=== PATIENT | male | born 1960 | race Caucasian/White ===

== ENCOUNTER 2016-12-15 21:53 | Inpatient (IN) | payer OTHER ==
[~2016-12-15] VITALS: Ht 172.7 cm; Wt 76.4 kg
[~2016-12-15 21:53] MED LIST: ASPI81TA82 PO; LASI80TA PO; LIPI20TA PO; PRED10 PO
[2016-12-15 21:59] VITALS: BP 153/94; PULSE 71; RESP 18; TEMP 98.2; O2SAT 99
[2016-12-15 22:08] VITALS: BP 153/94; PULSE 83; RESP 16; TEMP 98.2; O2SAT 99
[2016-12-15] MEDS ORDERED: IBUP800T23 PO (22:10)
[2016-12-15] MEDS ORDERED: ASPI81CH CHEW (22:10)
[2016-12-15] MEDS ORDERED: MORPHINE SULFATE 4 MG/ML INJ IV PUSH ONE (22:15)
[2016-12-15] MEDS ORDERED: SODIUM CHLORIDE 0.9% FLUSH 10 ML FLUSH IVF PRN (22:15)
[2016-12-15] MEDS ORDERED: ONDANSETRON HCL 4 MG/2 ML VIAL IVP ONE (22:15)
--- NOTE | 2016-12-15 22:16 | PD ---
HPI Chief Complaint: Injury Time Seen by Provider: 22:01 Travel History International Travel<30 days: No Contact w/Intl Traveler<30days: No Traveled to known affect area: No History of Present Illness HPI 55-year-old male arrives by EMS. He was walking down a hill, on a wet surface, and slipped backwards landing on his buttocks. He denies knee trauma however felt pain and swelling about the knee immediately after the fall. EMS notes deformity on scene. The knee was immobilized with a cardboard splint. He denies numbness tingling. No other injury to report. Immobilization helped pain. Mechanism mechanical. 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) Blood Disorders: Yes (Hemochromatosis) Cancer: No Cardiovascular Problems: No Diabetes: No Diminished Hearing: No Genitourinary: Yes (ADMISSION 07/29/12 [facility]) Immune Disorder: No Neurologic: No Psychiatric: No Reproductive: No Respiratory: No Thyroid Disease: No Past Surgical History AICD: No Arteriovenous Shunt: No Insulin Pump: No Joint Replacement: Yes (PINS AND SCREWS IN RIGHT SMALL FINGER) Pacemaker: No Social History Alcohol Use: Yes (several times per week) Tobacco Use: No Substance Use: No Allergies-Medications (Allergen,Severity, Reaction): Coded Allergies: No Known Allergies (Unverified , 07/29/12) Reported Meds & Prescriptions Reported Meds & Active Scripts Active Calcium 600+D 200 (Calcium Carbonate-Vitamin D) 600-200 Mg-Unit Tab 1 Tab PO BID Ergocalciferol 50,000 Unit Cap 50,000 Units PO Q7D Xarelto (Rivaroxaban) 10 Mg Tab 10 Mg PO DAILY Hydrocodone-Acetaminophen 10-325 mg Tab 1 Tab PO Q4H PRN Reported Ibuprofen 800 Mg Tab 800 Mg PO TID Aspirin 81 Mg Chew 81 Mg CHEW DAILY Review of Systems Except as stated in HPI: all other systems reviewed are Neg General / Constitutional: No: Fever Physical Exam Narrative GENERAL: 55-year-old male well-nourished well-developed SKIN: Warm and dry. HEAD: Atraumatic. Normocephalic. EYES: Pupils equal and round. No scleral icterus. No injection or drainage. ENT: No nasal bleeding or discharge. Mucous membranes pink and moist. NECK: Trachea midline. No JVD. CARDIOVASCULAR: Regular rate and rhythm. RESPIRATORY: No accessory muscle use. Clear to auscultation. Breath sounds equal bilaterally. GASTROINTESTINAL: Abdomen soft, non-tender, nondistended. Hepatic and splenic margins not palpable. MUSCULOSKELETAL: Generalized swelling about the superior aspect of the right knee with what feels like a separation of the patella. 2+ dorsalis pedis bilaterally. Ankle and toe flexion extension normal bilaterally. NEUROLOGICAL: Awake and alert. No obvious cranial nerve deficits. Motor grossly within normal limits. Five out of 5 muscle strength in the arms and legs. Normal speech. PSYCHIATRIC: Appropriate mood and affect; insight and judgment normal. Data Data Last Documented VS Vital Signs Date Time Temp Pulse Resp B/P (MAP) Pulse Ox O2 Delivery O2 Flow Rate FiO2 12/15/16 22:08 98.2 83 16 153/94 (113) 99 Room Air VS reviewed Orders Orders Femur (Ap & Lat/2vws) (12/15/16 22:01) Tibia/Fibula (Ap/Lat) (12/15/16 22:01) Complete Blood Count With Diff (12/15/16 22:01) Iv Access Insert/Monitor (12/15/16 22:01) Oximetry (12/15/16 22:01) Ecg Monitoring (12/15/16 22:01) Morphine Inj (Morphine Inj) (12/15/16 22:15) Ondansetron Inj (Zofran Inj) (12/15/16 22:15) Sodium Chloride 0.9% Flush (Ns Flush) (12/15/16 22:15) Basic Metabolic Panel (Bmp) (12/15/16 22:01) ^ Knee Immobilizer (12/15/16 22:01) Knee, Ltd (1 Or 2vws) (12/15/16 22:01) Admit To Inpatient (12/16/16 ) Vital Signs (Adult) Q4H (12/16/16 00:01) Activity Bed Rest (12/16/16 00:01) Diet Npo (12/16/16 Breakfast) Sodium Chlor 0.9% 1000 Ml Inj (Ns 1000 M (12/16/16 00:01) Sodium Chloride 0.9% Flush (Ns Flush) (12/16/16 00:15) Sodium Chloride 0.9% Flush (Ns Flush) (12/16/16 09:00) Ondansetron Inj (Zofran Inj) (12/16/16 00:15) Comprehensive Metabolic Panel (12/17/16 06:00) Complete Blood Count With Diff (12/17/16 06:00) Acetaminophen (Tylenol) (12/16/16 00:15) Acetamin-Hydrocod 325-5 Mg (Parma 5-325 (12/16/16 00:15) Hydromorphone Pf Inj (Dilaudid Pf Inj) (12/16/16 00:15) Docusate Sodium-Senna (Cherise-Colace) (12/16/16 09:00) Magnesium Hydroxide Liq (Milk Of Magnesi (12/16/16 00:15) Sennosides (Senokot) (12/16/16 00:15) Bisacodyl Supp (Dulcolax Supp) (12/16/16 00:15) Lactulose Liq (Lactulose Liq) (12/16/16 00:15) Inpatient Certification (12/16/16 ) Admit Order (Ed Use Only) (12/16/16 00:41) Consult Orthopedic (12/16/16 ) Labs Laboratory Tests Test 12/15/16 22:20 White Blood Count 5.5 TH/MM3 Red Blood Count 3.72 MIL/MM3 Hemoglobin 12.6 GM/DL Hematocrit 36.5 % Mean Corpuscular Volume 98.3 FL Mean Corpuscular Hemoglobin 34.0 PG Mean Corpuscular Hemoglobin Concent 34.6 % Red Cell Distribution Width 13.2 % Platelet Count 114 TH/MM3 Mean Platelet Volume 7.8 FL Neutrophils (%) (Auto) 60.7 % Lymphocytes (%) (Auto) 22.4 % Monocytes (%) (Auto) 15.0 % Eosinophils (%) (Auto) 1.3 % Basophils (%) (Auto) 0.6 % Neutrophils # (Auto) 3.3 TH/MM3 Lymphocytes # (Auto) 1.2 TH/MM3 Monocytes # (Auto) 0.8 TH/MM3 Eosinophils # (Auto) 0.1 TH/MM3 Basophils # (Auto) 0.0 TH/MM3 CBC Comment DIFF FINAL Differential Comment Blood Urea Nitrogen 7 MG/DL Creatinine 0.79 MG/DL Random Glucose 90 MG/DL Calcium Level 8.5 MG/DL Sodium Level 131 MEQ/L Potassium Level 3.8 MEQ/L Chloride Level 98 MEQ/L Carbon Dioxide Level 25.6 MEQ/L Anion Gap 7 MEQ/L Estimat Glomerular Filtration Rate 101 ML/MIN [facility] Medical Decision Making Medical Screen Exam Complete: Yes Emergency Medical Condition: Yes Medical Record Reviewed: Yes Differential Diagnosis Femur fracture, tibia fracture, patella fracture, internal derangement of knee Narrative Course The patient has a patella fracture. Case discussed with orthopedics. Knee Immobilizer. Nothing by mouth past midnight. Operative repair in the morning. Case discussed with Dr. Sher for [facility]. CBC & BMP Diagram 12/15/16 22:20 Calcium Level 8.5 Last 24 hours Impressions Knee X-Ray 12/16/16 0000 Signed Impressions: Service Date/Time: Friday, December 16, 2016 09:31 - CONCLUSION: Anatomic alignment. Manan Dale MD FACR Tibia/Fibula X-Ray 12/15/162200 Signed Impressions: Service Date/Time: Thursday, December 15, 2016 22:31 - CONCLUSION: 1. Displaced midpole patellar fracture as above. Paramjit Omer MD Knee X-Ray 12/15/162200 Signed Impressions: Service Date/Time: Thursday, December 15, 2016 22:29 - CONCLUSION: 1. Displaced midpole patella fracture. Paramjit Omer MD Femur X-Ray 12/15/162200 Signed Impressions: Service Date/Time: Thursday, December 15, 2016 22:27 - CONCLUSION: Mid patellar fracture with significant displacement of the fragments. Nicholas Bauman MD Diagnosis Primary Impression: Patellar fracture Qualified Codes: S82.091A - Other fracture of right patella, initial encounter for closed fracture Scripts Calcium Carbonate-Vitamin D (Calcium 600+D 200) 600-200 Mg-Unit Tab 1 TAB PO BID for Nutritional Supplement, #90 TAB 0 Refills Prov: Jae Garcia Jr. 12/16/16 Ergocalciferol (Ergocalciferol) 50,000 Unit Cap 70715 UNITS PO Q7D for Nutritional Supplement, #8 CAP Prov: Jae Garcia Jr. 12/16/16 Rivaroxaban (Xarelto) 10 Mg Tab 10 MG PO DAILY for Blood Clot Prevention, #21 TAB 0 Refills Prov: Jae Garcia Jr. 12/16/16 Hydrocodone-Acetaminophen (Hydrocodone-Acetaminophen) 10-325 mg Tab 1 TAB PO Q4H Y for PAIN, #60 TAB 0 Refills Prov: Jae Garcia Jr. 12/16/16 Kenton Banks MD Dec 15, 2016 22:16
[2016-12-15 22:59] LABS: AUTOMATED NEUTROPHIL # 3.3 TH/MM3 (1.8-7.7); BASOPHIL % 0.6 % (0.0-2.0); EOSINOPHIL # 0.1 TH/MM3 (0-0.4); EOSINOPHIL % 1.3 % (0.0-4.0); HEMATOCRIT 36.5 % (39.0-51.0); HEMO FLAGS DIFF FINAL; LYMPH % 22.4 % (9.0-44.0); LYMPHOCYTE # 1.2 TH/MM3 (1.0-4.8); MEAN CELL VOLUME 98.3 FL (80.0-100.0); MEAN CORPUSCULAR HGB CONC 34.6 % (32.0-36.0); NEUT % 60.7 % (16.0-70.0); PLATELET COUNT 114 TH/MM3 (150-450); RED BLOOD COUNT 3.72 MIL/MM3 (4.50-5.90); RED CELL DISTRIBUTION WIDTH 13.2 % (11.6-17.2); WHITE BLOOD COUNT 5.5 TH/MM3 (4.0-11.0)
--- NOTE | 2016-12-15 23:01 | RADRPT ---
EXAM DATE/TIME: 12/15/2016 22:31 [facility] COMPARISON: No previous studies available for comparison. INDICATIONS : Pain from fall. MEDICAL HISTORY : None. SURGICAL HISTORY : None. ENCOUNTER: Initial ACUITY: 1 day PAIN SCORE: 3/10 LOCATION: Right knee. FINDINGS: Two view examination of the right tibia demonstrates displaced patellar fracture with fracture fragme nts about 4.7 cm. Overlying soft tissue swelling and joint effusion. No fracture of the tib ia and fibula. CONCLUSION: 1. Displaced midpole patellar fracture as above. Paramjit Omer MD on December 15, 2016 at 22:56 Board Certified Radiologist. This report was verified electronically.
--- NOTE | 2016-12-15 23:05 | RADRPT ---
EXAM DATE/TIME: 12/15/2016 22:29 [facility] COMPARISON: No previous studies available for comparison. INDICATIONS : Pain from fall. MEDICAL HISTORY : None. SURGICAL HISTORY : None. ENCOUNTER: Initial ACUITY: 1 day PAIN SCORE: 3/10 LOCATION: Right knee. FINDINGS: There is a fracture midpole patella with displaced fracture fragments almost 5 cm. Overlying soft tis beth swelling and joint effusion. No other fracture identified. CONCLUSION: 1. Displaced midpole patella fracture. Paramjit Omer MD on December 15, 2016 at 23:02 Board Certified Radiologist. This report was verified electronically.
[2016-12-15 23:17] LABS: BICARBONATE 25.6 MEQ/L (21.0-32.0); POTASSIUM 3.8 MEQ/L (3.5-5.1)
--- NOTE | 2016-12-15 23:49 | RADRPT ---
EXAM DATE/TIME: 12/15/2016 22:27 [facility] COMPARISON: No previous studies available for comparison. INDICATIONS : Pain from fall. MEDICAL HISTORY : None. SURGICAL HISTORY : None. ENCOUNTER: Initial ACUITY: 1 day PAIN SCORE: 3/10 LOCATION: Right femur. FINDINGS: Two view examination of the right femur demonstrates a fracture of the midportion of the patella. The fractures are by 3.8 cm. There is a knee joint effusion. There is soft tissue swelling katelyn und the patellar region. No other possible fractures are seen. The right hip and knee joints are alig louisa. CONCLUSION: Mid patellar fracture with significant displacement of the fragments. Nicholas Bauman MD on December 15, 2016 at 23:44 Board Certified Radiologist. This report was verified electronically.
[2016-12-16] VITALS (7 sets, daily range): BP systolic 113–139; BP diastolic 67–79; PULSE 68–82; RESP 16–18; TEMP 97–98.4; O2SAT 96–100
[2016-12-16] MEDS ORDERED: BISACODYL 10 MG SUPP RECTAL PRN (00:15)
[2016-12-16] MEDS ORDERED: ACETAMINOPHEN/HYDROcodone 325 MG/5 MG TAB PO PRN (00:15)
[2016-12-16] MEDS ORDERED: ACETAMINOPHEN 325 MG TAB PO PRN (00:15)
[2016-12-16] MEDS ORDERED: SODIUM CHLORIDE 0.9% FLUSH 10 ML FLUSH IV FLUSH PRN (00:15)
[2016-12-16] MEDS ORDERED: LACTULOSE SYRUP 20 GM/30 ML CUP PO PRN (00:15)
[2016-12-16] MEDS ORDERED: HYDROmorphone HCL PF 1 MG/ML VIAL IV PRN (00:15)
[2016-12-16] MEDS ORDERED: ONDANSETRON HCL 4 MG/2 ML VIAL IVP PRN (00:15)
[2016-12-16] MEDS ORDERED: SENNOSIDES 8.6 MG TAB PO PRN (00:15)
[2016-12-16] MEDS ORDERED: MAGNESIUM HYDROXIDE SUSP 30 ML CUP PO PRN (00:15)
--- NOTE | 2016-12-16 01:04 | HHI.HP ---
[facility] Roopa Vaz MD Admission Diagnosis R Patella Fx; Fall Diagnoses: (1) Fall Diagnosis: Principal (2) Patellar fracture Diagnosis: Principal (3) Thrombocytopenia Diagnosis: Principal (4) HTN (hypertension) Diagnosis: Principal Travel History International Travel<30 Days: No Contact w/Intl Traveler <30 Da: No Traveled to Known Affected Are: No History of Present Illness This is a 55-year-old male with a PMH of Hemochromatosis was brought to the ER by EMS secondary to complaints of right knee pain after a fall. Pt had mechanical fall while walking down a hill, states he fell backwards and landed on his backside, however reports immediate right knee pain following fall. No LOC or head trauma reported. On arrival, BP 153/94, HR 71, O2 sat 99% on RA, Afebrile. Platelets 114, previously 280 on 08/01/12. Hemoglobin 12.6. Chemistry essentially unremarkable. Femur X-ray with midpatellar fracture with significant displacement of fragments. Knee X-ray with displaced mid pole patella fracture. Ortho consulted by ER physician, plan is for surgical intervention in am. Review of Systems Except as stated in HPI: all other systems reviewed are Neg ROS: 14 point review of systems otherwise negative. Past Family Social History Past Medical History PMH: Hemochromatosis Past Surgical History PAST SURGICAL HISTORY: Right Finger Surgery Allergies: Coded Allergies: No Known Allergies (Unverified , 07/29/12) Family History PAST FAMILY HISTORY: Reviewed. No h/o DM or CAD Social History PAST SOCIAL HISTORY: Occasional alcohol. He for tobacco or drugs. Physical Exam Vital Signs Vital Signs Date Time Temp Pulse Resp B/P (MAP) Pulse Ox O2 Delivery O2 Flow Rate FiO2 12/15/16 22:08 98.2 83 16 153/94 (113) 99 Room Air 12/15/16 21:59 98.2 71 18 153/94 (113) 99 Physical Exam PE: GENERAL: Middle-aged white male in no acute distress. HEENT: PERRLA, EOMI. No scleral icterus or conjunctival pallor. No lid lag or facial droop. CARDIOVASCULAR: Regular rate and rhythm. No obvious murmurs to auscultation. No chest tenderness to palpation. RESPIRATORY: No obvious rhonchi or wheezing. Clear to auscultation. Breath sounds equal bilaterally. GASTROINTESTINAL: Abdomen soft, non-tender, nondistended. BS normal. MUSCULOSKELETAL: Extremities without clubbing, cyanosis, or edema. No obvious deformities. Decreased ROM of RLE due to knee injury. NEUROLOGICAL: Awake, alert and oriented x4. No focal neurologic deficits. Moving both upper and lower extremities spontaneously. Laboratory Laboratory Tests Test 12/15/16 22:20 White Blood Count 5.5 Red Blood Count 3.72 Hemoglobin 12.6 Hematocrit 36.5 Mean Corpuscular Volume 98.3 Mean Corpuscular Hemoglobin 34.0 Mean Corpuscular Hemoglobin Concent 34.6 Red Cell Distribution Width 13.2 Platelet Count 114 Mean Platelet Volume 7.8 Neutrophils (%) (Auto) 60.7 Lymphocytes (%) (Auto) 22.4 Monocytes (%) (Auto) 15.0 Eosinophils (%) (Auto) 1.3 Basophils (%) (Auto) 0.6 Neutrophils # (Auto) 3.3 Lymphocytes # (Auto) 1.2 Monocytes # (Auto) 0.8 Eosinophils # (Auto) 0.1 Basophils # (Auto) 0.0 CBC Comment DIFF FINAL Differential Comment Blood Urea Nitrogen 7 Creatinine 0.79 Random Glucose 90 Calcium Level 8.5 Sodium Level 131 Potassium Level 3.8 Chloride Level 98 Carbon Dioxide Level 25.6 Anion Gap 7 Estimat Glomerular Filtration Rate 101 Result Diagram: 12/15/16221912/15/162219 Caprini VTE Risk Assessment Caprini VTE Risk Assessment: Mod/High Risk (score >= 2) Caprini Risk Assessment Model Point Value = 1 Point Value = 2 Point Value = 3 Point Value = 5 Age 41-60 Minor surgery BMI > 25 kg/m2 Swollen legs Varicose veins or History of unexplained or recurrent spontaneous Oral contraceptives or hormone replacement Sepsis (< 1 month) Serious lung disease, including pneumonia (< 1 month) Abnormal pulmonary function Acute myocardial infarction Congestive heart failure (< 1 month) History of inflammatory bowel disease Medical patient at bed rest Age 61-74 Arthroscopic surgery Major open surgery (> 45 min) Laparoscopic surgery (> 45 min) Malignancy Confined to bed (> 72 hours) Immobilizing plaster cast Central venous access Age >= 75 History of VTE Family history of VTE Factor V Leiden Prothrombin [id number] Lupus anticoagulant Anticardiolipin antibodies Elevated serum homocysteine Heparin-induced thrombocytopenia Other congenital or acquired thrombophilia Stroke (< 1 month) Elective arthroplasty Hip, pelvis, or leg fracture Acute spinal cord injury (< 1 month) Prophylaxis Regimen Total Risk Factor Score Risk Level Prophylaxis Regimen 0-1 Low Early ambulation 2 Moderate Order ONE of the following: *Sequential Compression Device (SCD) *Heparin 5000 units SQ BID 3-4 Higher Order ONE of the following medications: *Heparin 5000 units SQ TID *Enoxaparin/Lovenox 40 mg SQ daily (WT < 150 kg, CrCl > 30 mL/min) *Enoxaparin/Lovenox 30 mg SQ daily (WT < 150 kg, CrCl > 10-29 mL/min) *Enoxaparin/Lovenox 30 mg SQ BID (WT < 150 kg, CrCl > 30 mL/min) AND/OR *Sequential Compression Device (SCD) 5 or more Highest Order ONE of the following medications: *Heparin 5000 units SQ TID (Preferred with Epidurals) *Enoxaparin/Lovenox 40 mg SQ daily (WT < 150 kg, CrCl > 30 mL/min) *Enoxaparin/Lovenox 30 mg SQ daily (WT < 150 kg, CrCl > 10-29 mL/min) *Enoxaparin/Lovenox 30 mg SQ BID (WT < 150 kg, CrCl > 30 mL/min) AND *Sequential Compression Device (SCD) Assessment and Plan Problem List: (1) Fall ICD Code: W19.XXXA - Unspecified fall, initial encounter (2) Patellar fracture ICD Code: S82.009A - Unspecified fracture of unspecified patella, initial encounter for closed fracture (3) Thrombocytopenia ICD Code: D69.6 - Thrombocytopenia, unspecified (4) HTN (hypertension) ICD Code: I10 - Essential (primary) hypertension Assessment and Plan A/P: 1. Fall: s/p mechanical slip and fall on wet surface, no head trauma or LOC. 2. Right Patellar Fx: secondary to above. Knee X-ray with displaced mid pole patella fracture. Femur X-ray with midpatellar fracture with significant displacement of the fragments, images reviewed by me. Ortho consulted by ER physician, plan is for surgical intervention in am. NPO, IVF, analgesics/ antiemetics as needed. 3. Thrombocytopenia: Acute. Platelets 114, previously 280 on 08/01/12, no active bleeding. Will monitor, repeat labs in am. 4. HTN: BP 150's, likely compounded by pain complaints. No h/o HTN. Will monitor, prn meds if needed. 5. DVT Prophylaxis: Anticoagulation post op per Ortho 6. Social work for d/c planning as needed. 7. Case discussed w/ ER physician at length. Physician Certification 2 Midnight Certification Type: Admission for Inpatient Services Order for Inpatient Services The services are ordered in accordance with Medicare regulations or non- Medicare payer requirements, as applicable. In the case of services not specified as inpatient-only, they are appropriately provided as inpatient services in accordance with the 2-midnight benchmark. Estimated LOS (days): 2 days is the estimated time the patient will need to remain in the hospital, assuming treatment plan goals are met and no additional complications. Post-Hospital Plan: Not yet determined Juani Sher MD Dec 16, 2016 01:04
[2016-12-16] MEDS: SODIUM CHLOR 0.9% 1000 ML INJ 1,000 ML IV SCH ×4 (01:33→23:40)
--- NOTE | 2016-12-16 07:02 | PD.ORT.PN ---
Subjective Subjective Remarks s/p fall. right knee pain. no other complaints. Objective Vitals Vital Signs Date Time Temp Pulse Resp B/P (MAP) Pulse Ox O2 Delivery O2 Flow Rate FiO2 12/16/16 02:00 97.0 68 16 122/77 (92) 99 12/16/16 01:26 68 18 113/67 (82) 97 Room Air 12/15/16 22:08 98.2 83 16 153/94 (113) 99 Room Air 12/15/16 21:59 98.2 71 18 153/94 (113) 99 I/O 12/15/16 12/15/16 12/15/16 12/16/16 12/16/16 12/16/16 07:00 15:00 23:00 07:00 15:00 23:00 Intake Total 375 ml Output Total 1200 ml Balance -825 ml Intake Oral 0 ml IV Total 375 ml Output Urine Total 1200 ml # Voids 3 Result Diagram: 12/15/16221912/15/162219 Imaging Last 24 hours Impressions Tibia/Fibula X-Ray 12/15/162200 Signed Impressions: Service Date/Time: Thursday, December 15, 2016 22:31 - CONCLUSION: 1. Displaced midpole patellar fracture as above. Paramjit Omer MD Knee X-Ray 12/15/162200 Signed Impressions: Service Date/Time: Thursday, December 15, 2016 22:29 - CONCLUSION: 1. Displaced midpole patella fracture. Paramjit Omer MD Femur X-Ray 12/15/162200 Signed Impressions: Service Date/Time: Thursday, December 15, 2016 22:27 - CONCLUSION: Mid patellar fracture with significant displacement of the fragments. Nicholas Bauman MD Objective Remarks RLE: +swelling of knee. palpable deformity. full sensation distally and NVI Assessment & Plan Assessment and Plan 1) Right Patella Fx -sign consents -surgery today Konstantin Bojorquez Dec 16, 2016 07:02
[2016-12-16] MEDS ORDERED: GENTAMICIN SULFATE 80 MG/2 ML VIAL ONE (07:39)
[2016-12-16] MEDS ORDERED: VANCOMYCIN HCL 1000 MG VIAL ONE (07:39)
[2016-12-16] MEDS ORDERED: SODIUM CHLOR 0.9% 250 ML INJ 250 ML ONE (07:39)
[2016-12-16] MEDS ORDERED: SODIUM CHLORID 0.9% 500 ML IV PRN (09:00)
[2016-12-16] MEDS ORDERED: SODIUM CHLORIDE 0.9% FLUSH 10 ML FLUSH IV FLUSH SCH (09:00)
[2016-12-16] MEDS ORDERED: LACTATED RINGER'S 1000 ML IV PRN (09:00)
[2016-12-16] MEDS ORDERED: CHLORHEXIDINE GLUCONATE 2 % 1 PACK (2 CLOTHS) TOPICAL PRN (09:00)
[2016-12-16] MEDS ORDERED: METOPROLOL TARTRATE 25 MG TAB PO PRN (09:00)
[2016-12-16] MEDS: DOCUSATE SODIUM 50 MG/SENNA 8.6 MG TAB PO SCH ×2 (09:00→20:49)
[2016-12-16] MEDS ORDERED: INSULIN HUMAN REGULAR 1,000 UNITS/10 ML VIAL SQ PRN (09:00)
[2016-12-16] MEDS ORDERED: POVIDONE IODINE 5% (ANTISEPSIS KIT) 4 APPLICATIONS EACH NARE PRN (09:00)
[2016-12-16] MEDS ORDERED: ceFAZolin INJ 1,000 MG VIAL ONE (09:22)
--- NOTE | 2016-12-16 10:26 | PD.OP ---
cc: Suhas Vasquez MD Operative Report Date of Surgery: Dec 16, 2016 Preoperative Diagnosis: Comminuted right patella fracture Postoperative Diagnosis: Procedure: Open reduction internal fixation right patella Anesthesia: Gen. Surgeon: Suhas Vasquez Head Of History(s): RENETTA Olivarez PA-C The surgical procedure was assisted by my physician assistant softball coach. My P.A. presence was necessary throughout this case for the manipulation and positioning of the surgical extremity. My P.A. was assisting me throughout the duration of this procedure. The skill set of a physician assistant softball coach was medically necessary to complete this procedure. During the surgical case the life science technician was working at the back table and the physician assistant softball coach was directly assisting me. Operation and Findings: Plan of activity : Partial weightbearing up to 50 pounds with knee immobilizer, knee immobilizer on at all times, start passive range of motion 0-45 in 2 weeks This patient had an injury resulting in displaced patella fracture. Informed consent was confirmed preoperatively and informed consent was obtained. I had a detailed discussion with the patient regarding the risks and benefits of surgery. Patient was brought to the operating room and placed on the OR table. IV sedation and GETA were administered by anesthesiologist and IV antibiotics were given prior to incision. A timeout procedure was performed. The operative leg was prepped with alcohol followed by Hibiclens and draped in the usual sterile fashion. The procedure began with a 4-inch incision over the anterior knee. Subcutaneous tissue was dissected with Bovie. At this point the fracture site was visualized. Fracture was now cleaned with curettes. At this point attention was turned to reduction. There was significant comminution of the mid portion of the patella. Fracture fragments were manipulated to achieve reduction. K wires were used to hold provisional fixation. The inferior pole of the patella was reduced to the superior pole of the patella. Fracture keyed into anatomic alignment. Multiplanar fluoroscopy confirmed excellent alignment of fracture. 4 guide pins for the Synthes 4.0 cannulated screws were now placed from inferior to superior. Fluoroscopy was used to confirm appropriate guidepin placement. Screw lengths were measured. Cannulated drill was now placed over the guide pins. 4 Appropriate length screws were now placed, good compression was applied. 18 gauge wire was now passed through the cannulated screws in a [id number] fashion. 2 tension band type construct was now created. The wires were tensioned appropriately. Fluoroscopy confirmed well- placed hardware with well-aligned fracture. #5 FiberWire suture were now placed in figure of 8 fashion around the patella for additional stability. The retinaculum was now closed with #1 Vicryl, subcutaneous tissue was closed with 3 -0 Vicryl and skin was closed with shaun. Sterile dressings were applied. The patient was transferred to recovery in stable condition. He was placed into a knee immobilizer. Needle and sponge counts were correct. Suhas Vasquez MD Dec 16, 2016 10:26
[2016-12-16] MEDS ORDERED: MORPHINE SULFATE 4 MG/ML INJ IV PUSH PRN (10:30)
[2016-12-16] MEDS ORDERED: diphenhydrAMINE HCL 25 MG CAP PO PRN (10:30)
[2016-12-16] MEDS ORDERED: Post-op Orders (for Pharmacy) MISC XX ONE (10:30)
[2016-12-16] MEDS ORDERED: SODIUM CHLORIDE 0.9% FLUSH 5 ML FLUSH IVF PRN (10:30)
[2016-12-16] MEDS ORDERED: DO NOT ADM ANY ANTICOAGULANT DRUGS PRN (10:40)
[2016-12-16] MEDS ORDERED: *MEPERIDINE 25 MG INJ VIAL PERIprocedural Use ONLY ONE (10:43)
[2016-12-16] MEDS: LACTATED RINGER'S 1000 ML INJ 1,000 ML IV SCH ×2 (11:00→20:50)
[2016-12-16] MEDS ORDERED: XARE10TA PO (11:38)
[2016-12-16] MEDS ORDERED: CALCTAB19 PO (11:38)
[2016-12-16] MEDS ORDERED: ERGO1CAP30 PO (11:38)
[2016-12-16] MEDS ORDERED: WALKER/ADULT/FO1 MIS (11:38)
[2016-12-16] MEDS ORDERED: HYDR-3583 PO (11:38)
[2016-12-16] MEDS ORDERED: ePHEDrine/NS 25 MG/5 ML SYR IV ONE (12:00)
[2016-12-16] MEDS ORDERED: LACTATED RINGER'S 1000 ML INJ 1,000 ML IV ONE (12:00)
[2016-12-16] MEDS ORDERED: ONDANSETRON HCL 4 MG/2 ML VIAL IV PUSH ONE (12:00)
[2016-12-16] MEDS ORDERED: PROPOFOL 200 MG/20 ML AMP IV ONE (12:00)
[2016-12-16] MEDS: CALCIUM/VITAMIN D 250 MG/125 U TAB PO SCH ×2 (13:13→17:30)
--- NOTE | 2016-12-16 13:14 | MB ---
cc: ONELIA AYALA DATE OF CONSULTATION: 12/16/2016. REASON FOR CONSULTATION: Right patella fracture. CONSULTING PHYSICIAN: Dr. Sher. HISTORY OF PRESENT ILLNESS: Santosh is a 55-year-old male who had a fall. He slipped on a wet sidewalk. He fell backwards. He landed on his right leg. He had immediate right knee pain. He had difficulty standing or ambulating. He presented to the emergency room where x-rays revealed a displaced right patella fracture. He is currently awake and alert on the orthopedic floor. His main complaint is his right knee. Pain is worse with movement and is improved with rest. PAST MEDICAL HISTORY / ILLNESSES: Hemochromatosis. PAST SURGICAL HISTORY: Right finger surgery. ALLERGIES: None. MEDICATIONS: Please see the electronic medical record for a complete list of inpatient medications and this was reviewed. FAMILY HISTORY: Noncontributory. SOCIAL HISTORY: The patient denies tobacco or drug use. He drinks alcohol occasionally. REVIEW OF SYSTEMS: The patient denies headache, visual changes, neck pain, chest pain, shortness of breath, abdominal pain, nausea or vomiting, recent weight loss. He complains of right knee pain and swelling. PHYSICAL EXAMINATION: GENERAL: The patient is a thin 55-year-old male in no acute distress. He is awake and alert. He is alert and oriented times three. VITAL SIGNS: Temperature 97.0, pulse 68, respirations 16, blood pressure 122/77, 02 saturation is 99% on room air. HEAD, EYES, EARS, NOSE, THROAT: The patient is normocephalic. Pupils are equal. NECK: The neck is soft and nontender. Trachea is midline. ABDOMEN: The abdomen is soft, nontender and nondistended. EXTREMITIES: Examination of bilateral upper extremities reveals no obvious pain or deformity with shoulder, elbow or wrist motion. He has intact sensation to all fingers. He has good capillary refill of all fingers. Skin is intact. 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 Examination of the left leg reveals no pain with hip, knee or ankle motion. Skin is intact. Dorsalis pedis pulses palpable. He has good capillary refill in his toes. Examination of the right leg reveals or tenderness around his hip, ankle or foot. Skin is intact. Dorsalis pedis pulse is palpable. Examination of his knee reveals a moderate knee effusion. Skin is intact. He is tender to palpation around the patella. There is a palpable defect along the patella. He has pain with any knee motion. X-RAYS: X-rays of the right knee were reviewed. X-rays reveal a displaced right patella fracture. IMPRESSION: 1. Displaced right patella fracture. 2. Hemochromatosis. PLAN: The treatment options were discussed with the patient. At this point, I would recommend open reduction internal fixation of the right patella. The risks of surgery include bleeding, infection, injury to arteries, nerves or blood vessels, nonunion, malunion, painful hardware as well as medical complications including blood clot, stroke, heart attack and . All questions were answered. I explained to him that he will have to be very careful after surgery or he could displace the fracture again. A mid-level provider in my office, nurse practitioner or PA, may see this patient on a follow-up basis and continue to implement the objective of this plan including: Starting or adjusting medications, injections of muscle, tendon, bursa or joints, cast application, orthotic or brace application, physical therapy, further radiographic studies including x-ray, MRI, CT, ultrasounds or bone scan, vascular studies, neurologic studies, or other specialist consultations, and proceeding with surgical management as appropriate. MD LOLIS Ardon/ALYCIA /7:11 AM /1:03 PM KENY
--- NOTE | 2016-12-16 13:54 | RADRPT ---
EXAM DATE/TIME: 12/16/2016 09:31 [facility] COMPARISON: KNEE RIGHT LTD (1 OR 2 VWS), December 15, 2016, 22:29. INDICATIONS : Open reduction internal fixation of the right patella. MEDICAL HISTORY : None. SURGICAL HISTORY : None. ENCOUNTER: Subsequent ACUITY: 2 days PAIN SCORE: Non-responsive. LOCATION: Right Patella. FINDINGS: Anatomic alignment across the patellar fracture with cortical screws and wire wrap. CONCLUSION: Anatomic alignment. Manan Dale MD FACR on December 16, 2016 at 13:52 Board Certified Radiologist. This report was verified electronically.
[2016-12-16] MEDS: ACETAMINOPHEN/HYDROcodone 325 MG/10 MG TAB PO PRN ×3 (15:51→23:48)
[2016-12-16] MEDS: ceFAZolin 2 GM PREMIX 50 ML IV SCH ×2 (17:18→23:39)
[2016-12-16] MEDS: SODIUM CHLORIDE 0.9% FLUSH 5 ML FLUSH IVF SCH (20:49)
[2016-12-17] VITALS (8 sets, daily range): BP systolic 126–143; BP diastolic 69–81; PULSE 65–74; RESP 16–19; TEMP 96.2–98; O2SAT 98–100
[2016-12-17 04:59] LABS: BASOPHIL % 0.3 % (0.0-2.0); EOSINOPHIL % 0.3 % (0.0-4.0); HEMATOCRIT 32.7 % (39.0-51.0); HEMO FLAGS DIFF FINAL; LYMPH % 11.2 % (9.0-44.0); LYMPHOCYTE # 0.7 TH/MM3 (1.0-4.8); MEAN CELL VOLUME 100.7 FL (80.0-100.0); MEAN CORPUSCULAR HGB CONC 33.8 % (32.0-36.0); MONO % 11.4 % (0.0-8.0); NEUT % 76.8 % (16.0-70.0); PLATELET COUNT 100 TH/MM3 (150-450); RED BLOOD COUNT 3.25 MIL/MM3 (4.50-5.90); RED CELL DISTRIBUTION WIDTH 13.5 % (11.6-17.2); WHITE BLOOD COUNT 6.5 TH/MM3 (4.0-11.0)
[2016-12-17 05:31] LABS: ALKALINE PHOSPHATASE 47 U/L (45-117); ALT (GPT) 42 U/L (12-78); ANION GAP 7 MEQ/L (5-15); AST (GOT) 43 U/L (15-37); BICARBONATE 26.2 MEQ/L (21.0-32.0); BLOOD UREA NITROGEN 4 MG/DL (7-18); CHLORIDE 107 MEQ/L (98-107); GLOMERULAR FILTRATION RATE 105 ML/MIN (>89); SODIUM (NA) 140 MEQ/L (136-145); TOTAL BILIRUBIN ADULT 0.3 MG/DL (0.2-1.0)
--- NOTE | 2016-12-17 06:32 | PD.ORT.PN ---
Subjective Subjective Remarks POD 1 s/p ORIF right patella doing well. states pain yesterday but improving. Objective Vitals Vital Signs Date Time Temp Pulse Resp B/P (MAP) Pulse Ox O2 Delivery O2 Flow Rate FiO2 12/17/16 04:00 97.2 66 16 126/70 (88) 100 12/17/16 00:01 96.5 65 16 128/69 (88) 99 12/16/16 20:12 98 21 12/16/16 19:00 97.0 68 16 135/77 (96) 98 12/16/16 16:00 98.4 82 16 139/70 (93) 98 12/16/16 12:00 97.9 73 16 134/79 (97) 100 12/16/16 11:15 75 16 121/66 (84) 98 Nasal Cannula 2 12/16/16 11:00 81 16 124/68 (86) 99 Nasal Cannula 2 12/16/16 10:45 64 16 129/66 (87) 100 Nasal Cannula 2 12/16/16 10:40 98.2 90 16 119/63 (81) 100 Nasal Cannula 2 12/16/16 08:00 98.0 76 16 125/76 (92) 96 I/O 12/16/16 12/16/16 12/16/16 12/17/16 12/17/16 12/17/16 07:00 15:00 23:00 07:00 15:00 23:00 Intake Total 375 ml 1970 ml 1064 ml Output Total 1200 ml 1350 ml 100 ml 400 ml Balance -825 ml 620 ml 964 ml -400 ml Intake Oral 0 ml 720 ml 240 ml IV Total 375 ml 824 ml Other 1250 ml Output Urine Total 1200 ml 1150 ml 100 ml 400 ml Estimated Blood Loss 200 ml # Voids 3 # Bowel Movements 0 0 Result Diagram: 12/17/163 12/17/16422 Imaging Last 24 hours Impressions Tibia/Fibula X-Ray 12/15/162200 Signed Impressions: Service Date/Time: Thursday, December 15, 2016 22:31 - CONCLUSION: 1. Displaced midpole patellar fracture as above. Paramjit Omer MD Knee X-Ray 12/15/162200 Signed Impressions: Service Date/Time: Thursday, December 15, 2016 22:29 - CONCLUSION: 1. Displaced midpole patella fracture. Paramjit Omer MD Femur X-Ray 12/15/16 2201 Signed Impressions: Service Date/Time: Thursday, December 15, 2016 22:27 - CONCLUSION: Mid patellar fracture with significant displacement of the fragments. Nicholas Bauman MD Objective Remarks RLE: dressings clean and dry. intact. nvi. +CKS Assessment & Plan Assessment and Plan 1) Right Patella Fx s/p ORIF - POD 1 -PWB up to 50lbs -CKS at all times -no ROM, no quad sets, no leg lifts -daily dressing changes POD 2 -CM for rehab vs home with [facility] -patient lives at home alone. if getting around safely with walker, could look at going home. -f/u with [facility] or [facility] in 2 weeks Konstantin Bojorquez Dec 17, 2016 06:32
--- NOTE | 2016-12-17 06:35 | HHI.FF ---
Face to Face Verification Diagnosis: (1) Patellar fracture Physical Therapy Gait training Knee: Knee fracture, Protocol: Right Right LE Weight Bearing: Toe Touch WB (partial weight bearing up to 50lbs with brace on), No Strengthening, No Quad Sets Right LE Range of Motion: No ROM Nursing Dressing Changes: Daily dressing change, Daniel wrap, 4x4s, Xeroform I have seen patient Santosh Oliveira on 12/17/16. My clinical findings support the need for the requested home health care services because: Ltd mobility - disease progression I certify that my clinical findings support that this patient is homebound because: Post-op weakness Konstantin Bojorquez Dec 17, 2016 06:35
[2016-12-17] MEDS: ENOXAPARIN SODIUM 30 MG/0.3 ML SYRINGE SQ SCH (09:28)
[2016-12-17] MEDS: CALCIUM/VITAMIN D 250 MG/125 U TAB PO SCH ×3 (09:28→18:19)
[2016-12-17] MEDS: DOCUSATE SODIUM 50 MG/SENNA 8.6 MG TAB PO SCH ×2 (09:28→20:54)
[2016-12-17] MEDS: ceFAZolin 2 GM PREMIX 50 ML IV SCH (09:29)
[2016-12-17] MEDS: SODIUM CHLORIDE 0.9% FLUSH 5 ML FLUSH IVF SCH ×2 (09:29→20:54)
[2016-12-17] MEDS: ACETAMINOPHEN/HYDROcodone 325 MG/10 MG TAB PO PRN ×4 (09:29→21:25)
[2016-12-17] MEDS: LACTATED RINGER'S 1000 ML INJ 1,000 ML IV SCH (11:22)
--- NOTE | 2016-12-17 15:56 | HHI.PR ---
Subjective Remarks Follow-up on right patellar fracture. Status post ORIF. Nursing reports that today's of first a patient is trying to get up and walk around, patient himself says he was able to go to the bathroom with his walker. Patient is willing to try by mouth pain medications today, did receive IV pain medications earlier to which nurse says he was needing because his pain was uncontrolled Objective Vital Signs Date Time Temp Pulse Resp B/P (MAP) Pulse Ox O2 Delivery O2 Flow Rate FiO2 12/17/16 12:00 97.5 67 18 128/75 (92) 98 12/17/16 09:30 21 12/17/16 08:00 96.2 69 18 137/81 (99) 98 12/17/16 04:00 97.2 66 16 126/70 (88) 100 12/17/16 00:01 96.5 65 16 128/69 (88) 99 12/16/16 20:12 98 21 12/16/16 19:00 97.0 68 16 135/77 (96) 98 12/16/16 16:00 98.4 82 16 139/70 (93) 98 I/O 12/16/16 12/16/16 12/16/16 12/17/16 12/17/16 12/17/16 07:00 15:00 23:00 07:00 15:00 23:00 Intake Total 375 ml 1970 ml 1064 ml Output Total 1200 ml 1350 ml 100 ml 400 ml Balance -825 ml 620 ml 964 ml -400 ml Intake Oral 0 ml 720 ml 240 ml IV Total 375 ml 824 ml Other 1250 ml Output Urine Total 1200 ml 1150 ml 100 ml 400 ml Estimated Blood Loss 200 ml # Voids 3 # Bowel Movements 0 0 Result Diagram: 12/17/1642212/17/16422 Objective Remarks Gen.: No acute distress MSK: Right leg and CTS with bag of ice on top, no pedal edema swelling or erythema or cyanosis A/P Assessment and Plan 1. Fall: s/p mechanical slip and fall on wet surface, no head trauma or LOC. 2. Right Patellar Fx: continue PT, s/p ORIF, has been receiving IV pain medication, transitioning to orals, informed nursing that if patient has severe pain tonight can seek M.D. order for IV pain medication 3. Debility secondary to right knee patellar fracture - will need rehabilitation, patient leaning towards home health physical therapy upon discharge, says he thinks he can get around on his home as long as he gets checked once a day by a family friend 3. Thrombocytopenia: worsening today, repeat juni, still stable for lovenox, if worsening tomorrow, pt will eventually go home on NOAC anyway but can get outpt workup for HIT 4. HTN: monitor 5. hypercoagulable state: continue lovenox, discussed with patient he will likely be sent home on oral anticoagulation, will need to exercise further caution for falling Omar Mancuso MD Dec 17, 2016 15:56
[2016-12-17] MEDS: SODIUM CHLOR 0.9% 1000 ML INJ 1,000 ML IV SCH (16:01)
[2016-12-18] MEDS: LACTATED RINGER'S 1000 ML INJ 1,000 ML IV SCH ×3 (00:30→19:51)
[2016-12-18] MEDS: ACETAMINOPHEN/HYDROcodone 325 MG/10 MG TAB PO PRN ×7 (00:53→23:44)
[2016-12-18] MEDS: SODIUM CHLOR 0.9% 1000 ML INJ 1,000 ML IV SCH ×3 (00:54→19:50)
[2016-12-18 03:40] VITALS: BP 128/78; PULSE 75; RESP 17; TEMP 97; O2SAT 98
--- NOTE | 2016-12-18 07:12 | PD.ORT.PN ---
Subjective Subjective Remarks Resting comfortably. States that he is continuing to make arrangements to be able to have help at home after discharge Objective Vitals Vital Signs Date Time Temp Pulse Resp B/P (MAP) Pulse Ox O2 Delivery O2 Flow Rate FiO2 12/18/16 03:40 97.0 75 17 128/78 (95) 98 12/17/16 23:50 97.6 68 17 140/72 (94) 98 12/17/16 20:45 98.0 74 17 143/78 (99) 99 12/17/16 17:40 98 21 12/17/16 16:00 96.8 68 19 142/76 (98) 100 12/17/16 12:00 97.5 67 18 128/75 (92) 98 12/17/16 09:30 21 12/17/16 08:00 96.2 69 18 137/81 (99) 98 I/O 12/17/16 12/17/16 12/17/16 12/18/16 12/18/16 12/18/16 07:00 15:00 23:00 07:00 15:00 23:00 Intake Total 1080 ml 720 ml Output Total 400 ml 1850 ml 1000 ml Balance -400 ml -770 ml -280 ml Intake Oral 1080 ml 720 ml Output Urine Total 400 ml 1850 ml 1000 ml # Bowel Movements 1 0 Result Diagram: 12/17/1642212/17/16422 Imaging Last 24 hours Impressions Tibia/Fibula X-Ray 12/15/162200 Signed Impressions: Service Date/Time: Thursday, December 15, 2016 22:31 - CONCLUSION: 1. Displaced midpole patellar fracture as above. Paramjit Omer MD Knee X-Ray 12/15/162200 Signed Impressions: Service Date/Time: Thursday, December 15, 2016 22:29 - CONCLUSION: 1. Displaced midpole patella fracture. Paramjit Omer MD Femur X-Ray 12/15/162200 Signed Impressions: Service Date/Time: Thursday, December 15, 2016 22:27 - CONCLUSION: Mid patellar fracture with significant displacement of the fragments. Nicholas Bauman MD Objective Remarks Right lower extremity: Clean dry dressings in place. Knee immobilizer intact. Distally intact sensation with good capillary refills. He strong dorsiflexion and plantar flexion of foot Assessment & Plan Assessment and Plan 1) Right Patella Fx s/p ORIF - POD 2 -PWB up to 50lbs -CKS at all times -no ROM, no quad sets, no leg lifts -daily dressing changes -May be discharged home with home health care if arrangements made with family and friends [employer] to install strapped to the immobilizer to help with leg with arm -f/u with [facility] or [facility] in 2 weeks Jae Garcia Jr. Dec 18, 2016 07:12
[2016-12-18 07:48] LABS: AUTOMATED NEUTROPHIL # 3.8 TH/MM3 (1.8-7.7); BASOPHIL % 0.5 % (0.0-2.0); EOSINOPHIL % 0.6 % (0.0-4.0); HEMATOCRIT 33.1 % (39.0-51.0); HEMO FLAGS DIFF FINAL; LYMPHOCYTE # 0.9 TH/MM3 (1.0-4.8); MEAN CELL VOLUME 100.4 FL (80.0-100.0); MEAN CORPUSCULAR HGB CONC 33.9 % (32.0-36.0); MONO % 13.1 % (0.0-8.0); NEUT % 69.8 % (16.0-70.0); PLATELET COUNT 105 TH/MM3 (150-450); RED BLOOD COUNT 3.29 MIL/MM3 (4.50-5.90); RED CELL DISTRIBUTION WIDTH 13.5 % (11.6-17.2); WHITE BLOOD COUNT 5.4 TH/MM3 (4.0-11.0)
[2016-12-18 08:00] VITALS: BP 143/76; PULSE 62; RESP 18; TEMP 97.6; O2SAT 100
[2016-12-18] MEDS: DOCUSATE SODIUM 50 MG/SENNA 8.6 MG TAB PO SCH ×2 (08:09→19:46)
[2016-12-18] MEDS: CALCIUM/VITAMIN D 250 MG/125 U TAB PO SCH ×4 (08:09→18:10)
[2016-12-18] MEDS: SODIUM CHLORIDE 0.9% FLUSH 5 ML FLUSH IVF SCH ×2 (08:10→19:46)
--- NOTE | 2016-12-18 10:27 | HHI.PR ---
Subjective Remarks Follow-up on right patellar fracture. Status post ORIF. Pt says he's doing better w/ pain, did not need to ask for IV pain medication last night. Says he' s eating well Objective Vital Signs Date Time Temp Pulse Resp B/P (MAP) Pulse Ox O2 Delivery O2 Flow Rate FiO2 12/18/16 08:00 97.6 62 18 143/76 (98) 100 12/18/16 03:40 97.0 75 17 128/78 (95) 98 12/17/16 23:50 97.6 68 17 140/72 (94) 98 12/17/16 20:45 98.0 74 17 143/78 (99) 99 12/17/16 17:40 98 21 12/17/16 16:00 96.8 68 19 142/76 (98) 100 12/17/16 12:00 97.5 67 18 128/75 (92) 98 I/O 12/17/16 12/17/16 12/17/16 12/18/16 12/18/16 12/18/16 07:00 15:00 23:00 07:00 15:00 23:00 Intake Total 1080 ml 720 ml Output Total 400 ml 1850 ml 1000 ml Balance -400 ml -770 ml -280 ml Intake Oral 1080 ml 720 ml Output Urine Total 400 ml 1850 ml 1000 ml # Bowel Movements 1 0 Result Diagram: 12/18/16 0704 12/17/16 0423 Objective Remarks Gen.: No acute distress MSK: Right leg in CTS, no pedal edema swelling or erythema A/P Assessment and Plan 1. Fall: s/p mechanical slip and fall on wet surface, no head trauma or LOC. 2. Right Patellar Fx: continue PT, s/p ORIF, doing ok on orals, informed nursing that if patient has severe pain tonight can seek M.D. order for IV pain medication 3. Debility secondary to right knee patellar fracture - will need rehabilitation 3. Thrombocytopenia: Reviewed platelets today, holding steady, continue Lovenox, no workup for head needed 4. HTN: monitor 5. hypercoagulable state: continue lovenox, discussed with patient he will likely be sent home on oral anticoagulation, will need to exercise further caution for falling Discussed case was case management, patient unable to have sufficient home supervision with family, will need rehabilitation placement to which the patient is agreeable mOar Mancuso MD Dec 18, 2016 10:27
[2016-12-18] MEDS: ENOXAPARIN SODIUM 30 MG/0.3 ML SYRINGE SQ SCH (10:36)
[2016-12-18 12:00] VITALS: BP 128/71; PULSE 61; RESP 18; TEMP 95.9; O2SAT 100
[2016-12-18 14:49] VITALS: BP 126/73; PULSE 90; RESP 16; TEMP 97.3; O2SAT 100
[2016-12-18 20:00] VITALS: BP 128/72; PULSE 80; RESP 17; TEMP 98; O2SAT 100
[2016-12-19] VITALS: BP 129/72; PULSE 84; RESP 17; TEMP 98.2; O2SAT 97
[2016-12-19 04:05] VITALS: BP 128/72; PULSE 82; RESP 17; TEMP 98.2; O2SAT 98
[2016-12-19] MEDS: ACETAMINOPHEN/HYDROcodone 325 MG/10 MG TAB PO PRN ×3 (04:16→13:48)
--- NOTE | 2016-12-19 06:53 | PD.ORT.PN ---
Subjective Subjective Remarks POD 3 s/p ORIF right patella doing well. states doign well with therapy. reports that has arrangements to go to [facility] Objective Vitals Vital Signs Date Time Temp Pulse Resp B/P (MAP) Pulse Ox O2 Delivery O2 Flow Rate FiO2 12/19/16 04:05 98.2 82 17 128/72 (90) 98 12/19/16 00:00 98.2 84 17 129/72 (91) 97 12/18/16 21:45 21 12/18/16 20:00 98.0 80 17 128/72 (90) 100 12/18/16 14:49 97.3 90 16 126/73 (90) 100 12/18/16 12:00 95.9 61 18 128/71 (90) 100 12/18/16 08:00 97.6 62 18 143/76 (98) 100 I/O 12/18/16 12/18/16 12/18/16 12/19/16 12/19/16 12/19/16 06:59 14:59 22:59 06:59 14:59 22:59 Intake Total 720 ml 480 ml 600 ml Output Total 1000 ml 800 ml 500 ml Balance -280 ml -320 ml 100 ml Intake Oral 720 ml 480 ml 600 ml Output Urine Total 1000 ml 800 ml 500 ml # Bowel Movements 0 0 0 Result Diagram: 12/18/16 0704 12/17/16 0423 Imaging Last 24 hours Impressions Tibia/Fibula X-Ray 12/15/162200 Signed Impressions: Service Date/Time: Thursday, December 15, 2016 22:31 - CONCLUSION: 1. Displaced midpole patellar fracture as above. Paramjit Omer MD Knee X-Ray 12/15/162200 Signed Impressions: Service Date/Time: Thursday, December 15, 2016 22:29 - CONCLUSION: 1. Displaced midpole patella fracture. Paramjit Omer MD Femur X-Ray 12/15/162200 Signed Impressions: Service Date/Time: Thursday, December 15, 2016 22:27 - CONCLUSION: Mid patellar fracture with significant displacement of the fragments. Nicholas Bauman MD Objective Remarks Right lower extremity: Clean dry dressings in place. Knee immobilizer intact. Distally intact sensation with good capillary refills. He strong dorsiflexion and plantar flexion of foot Assessment & Plan Assessment and Plan 1) Right Patella Fx s/p ORIF - POD 3 -PWB up to 50lbs -CKS at all times -no ROM, no quad sets, no leg lifts -daily dressing changes -plan for discharge to [facility] -f/u with [facility] or [facility] in 2 weeks Konstantin Bojorquez Dec 19, 2016 06:53
[2016-12-19 08:00] VITALS: BP 141/77; PULSE 66; RESP 16; TEMP 97.6; O2SAT 98
[2016-12-19] MEDS: SODIUM CHLOR 0.9% 1000 ML INJ 1,000 ML IV SCH (08:01)
[2016-12-19 08:28] VITALS: O2SAT 96
[2016-12-19] MEDS: SODIUM CHLORIDE 0.9% FLUSH 5 ML FLUSH IVF SCH (09:00)
[2016-12-19] MEDS: ENOXAPARIN SODIUM 30 MG/0.3 ML SYRINGE SQ SCH (10:13)
[2016-12-19] MEDS: DOCUSATE SODIUM 50 MG/SENNA 8.6 MG TAB PO SCH (10:13)
[2016-12-19] MEDS: CALCIUM/VITAMIN D 250 MG/125 U TAB PO SCH ×2 (10:13→12:40)
--- NOTE | 2016-12-19 10:25 | HHI.DCPOC ---
Discharge Care Plan Your Health Problems Are: Loss of Movements Goals to Promote Your Health * To prevent worsening of your condition and complications * To maintain your health at the optimal level Directions to Meet Your Goals Take your medications as prescribed Follow your dietary instruction Follow activity as directed Keep your appointments as scheduled Take your immunizations and boosters as scheduled If your symptoms worsen call your PCP, if no PCP go to Urgent Care Center or Emergency Room Smoking is Dangerous to Your Health. Avoid second hand smoke Call the 24-hour hour crisis hotline for domestic abuse at Omar Mancuso MD Dec 19, 2016 10:25
--- NOTE | 2016-12-19 10:26 | HHI.DS ---
Discharge Summary Admission Date Dec 16, 2016 at 00:42 Discharge Date: Dec 19, 2016 Admitting Diagnosis R Patella Fx; Fall (1) Fall ICD Code: W19.XXXA - Unspecified fall, initial encounter (2) Patellar fracture ICD Code: S82.009A - Unspecified fracture of unspecified patella, initial encounter for closed fracture Diagnosis: Principal (3) Thrombocytopenia ICD Code: D69.6 - Thrombocytopenia, unspecified (4) HTN (hypertension) ICD Code: I10 - Essential (primary) hypertension Procedures Status post right ORIF of right patella Brief History - From Admission This is a 55-year-old male with a PMH of Hemochromatosis was brought to the ER by EMS secondary to complaints of right knee pain after a fall. Pt had mechanical fall while walking down a hill, states he fell backwards and landed on his backside, however reports immediate right knee pain following fall. No LOC or head trauma reported. On arrival, BP 153/94, HR 71, O2 sat 99% on RA, Afebrile. Platelets 114, previously 280 on 08/01/12. Hemoglobin 12.6. Chemistry essentially unremarkable. Femur X-ray with midpatellar fracture with significant displacement of fragments. Knee X-ray with displaced mid pole patella fracture. Ortho consulted by ER physician, plan is for surgical intervention in am. CBC/BMP: 12/18/16 0704 12/17/16 0423 Significant Findings Laboratory Tests Test 12/17/16 04:23 12/18/16 07:04 Red Blood Count 3.25 MIL/MM3 (4.50-5.90) 3.29 MIL/MM3 (4.50-5.90) Hemoglobin 11.0 GM/DL (13.0-17.0) 11.2 GM/DL (13.0-17.0) Hematocrit 32.7 % (39.0-51.0) 33.1 % (39.0-51.0) Mean Corpuscular Volume 100.7 FL (80.0-100.0) 100.4 FL (80.0-100.0) Platelet Count 100 TH/MM3 (150-450) 105 TH/MM3 (150-450) Neutrophils (%) (Auto) 76.8 % (16.0-70.0) Monocytes (%) (Auto) 11.4 % (0.0-8.0) 13.1 % (0.0-8.0) Lymphocytes # (Auto) 0.7 TH/MM3 (1.0-4.8) 0.9 TH/MM3 (1.0-4.8) Blood Urea Nitrogen 4 MG/DL (7-18) Total Protein 5.5 GM/DL (6.4-8.2) Albumin 2.7 GM/DL (3.4-5.0) Calcium Level 8.0 MG/DL (8.5-10.1) Aspartate Amino Transf (AST/SGOT) 43 U/L (15-37) Hospital Course Patient was admitted, underwent ORIF of right patella fracture. Tolerated procedure well. Had some mild thrombocytopenia that was monitored while he was on Lovenox and had stabilized. Patient was transitioned to oral pain medications, insurance company was closed for holiday, had slightly delayed discharge. Will be discharged to long term inpatient facility. Patient has met maximum benefit from hospitalization and is clinically stable for discharge. Pt Condition on Discharge: Good Discharge Disposition: Discharge to SNF Discharge Time: <= 30 minutes Discharge Instructions DIET: Follow Instructions for: Heart Healthy Diet Activities you can perform: See Additionl Instruction Other Activity Instructions: RT LE: Partial wb 50 lbs, no strengthening, no quad sets on, RT LE: NO ROM . LT LE: WBAT.. see physician orders on paper chart for more details Follow up Referrals: Orthopedics - 2 Weeks @ [facility] with Suhas Lyman MD New Medications: Calcium Carbonate-Vitamin D (Calcium 600+D 200) 600-200 Mg-Unit Tab 1 TAB PO BID for Nutritional Supplement, #90 TAB 0 Refills Ergocalciferol (Ergocalciferol) 50,000 Unit Cap 20345 UNITS PO Q7D for Nutritional Supplement, #8 CAP Hydrocodone-Acetaminophen (Hydrocodone-Acetaminophen) 10-325 mg Tab 1 TAB PO Q4H PRN for PAIN, #60 TAB 0 Refills Rivaroxaban (Xarelto) 10 Mg Tab 10 MG PO DAILY for Blood Clot Prevention, #21 TAB 0 Refills Walker/Adult/Folding (Walker/Adult/Folding) 1 Mis Mis EA .ROUTE DIRECTED, #1 0 Refills Omar Mancuso MD Dec 19, 2016 10:26
[2016-12-19 12:00] VITALS: BP 142/84; PULSE 78; RESP 16; TEMP 98.4; O2SAT 100
[2016-12-19] MEDS ORDERED: KETOROLAC TROMETHAMINE 60 MG/2 ML (IM) VIAL IM ONE (12:00)
== END 2016-12-19 15:40 | disposition home health service (06) | DRG 517 ==
LOC: NEPE 21:53 → NEDA 12-16 00:42 → N06A 12-16 01:51
PROVIDERS: ADMIT Hospitalist; ATTEND Hospitalist
PROC: 0QSD04Z Reposition Right Patella with Internal Fixation Device, Open Approach (ICD-10-PCS; principal; 2016-12-16 09:00)
DX: S82.041A Displaced comminuted fracture of right patella, initial encounter for closed fracture (principal); D69.6 Thrombocytopenia, unspecified; I10 Essential (primary) hypertension; E83.119 Hemochromatosis, unspecified; W01.0XXA Fall on same level from slipping, tripping and stumbling without subsequent striking against object, initial encounter; Y93.01 Activity, walking, marching and hiking; Y92.480 Sidewalk as the place of occurrence of the external cause
CPT/HCPCS: 73552; 73560; 73590; 76000; 80048; 80053; 85025; 94150; 96374; 96375; C1713; J0690; J1580; J1650; J1885; J2175; J2270; J2405; J3010; J3370; J7030; J7050; J7120; L1830